=== PATIENT | female | born 1975 | race American Indian/Alaskan Native ===

== ENCOUNTER 2016-10-07 08:29 | Emergency (ER) | payer MEDICAID, OTHER ==
[2016-10-07] MEDS ORDERED: MOTRIN PO ONE (11:00)
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
[2016-10-07 13:13] VITALS: BP 135/82
== END 2016-10-07 13:12 | disposition home or self-care (01) ==
LOC: ED 08:29
DX: S16.1XXA Strain of muscle, fascia and tendon at neck level, initial encounter (principal); M25.512 Pain in left shoulder; V49.49XA Driver injured in collision with other motor vehicles in traffic accident, initial encounter; Y93.89 Activity, other specified; Y92.89 Other specified places as the place of occurrence of the external cause; Y99.8 Other external cause status
CPT/HCPCS: 99282

== ENCOUNTER 2018-07-05 21:35 | Emergency (ER) | payer OTHER ==
[2018-07-06 00:12] LABS: Basophils # (Auto) 0.1 K/mm3 (0.0-0.1); Basophils % (Auto) 0.8 % (0.0-1.8); Eosinophils # (Auto) 0.1 K/mm3 (0.0-0.4); Eosinophils % (Auto) 0.9 % (0.0-4.3); Hematocrit 27.8 % (30.3-42.9); Hemoglobin 8.6 gm/dl (10.1-14.3); Lymphocytes # (Auto) 2.1 K/mm3 (1.2-5.4); Lymphocytes % (Auto) 23.2 % (13.4-35.0); Mean Corpuscular HGB Conc 31 % (30-34); Monocytes # (Auto) 0.9 K/mm3 (0.0-0.8); Monocytes % (Auto) 9.3 % (0.0-7.3); Platelet Count 298 K/mm3 (140-440); Red Blood Count 4.51 M/mm3 (3.65-5.03)
[2018-07-06 00:23] LABS: Mean Corpuscular Volume 62 fl (79-97); Red Cell Distribution Width 20.5 % (13.2-15.2)
[2018-07-06] MEDS ORDERED: PERCOCET 5/325 PO ONE (02:34)
[2018-07-06] MEDS ORDERED: ZOFRAN IV ONE (02:34)
[2018-07-06] MEDS ORDERED: NACL 0.9% 1000 ML 1,000 ML IV ONE (02:34)
[2018-07-06 03:24] LABS: Alanine Aminotransferase 9 units/L (7-56); Albumin 3.8 g/dL (3.9-5); BUN/Creatinine Ratio 11; Blood Urea Nitrogen 9 mg/dL (7-17); Calcium 8.9 mg/dL (8.4-10.2); Hemolysis Index 0
[2018-07-06 06:06] LABS: Bacteria,Urine 1+ /HPF (Negative); Bilirubin,Urine NEG (Negative); Blood,Urine LG (Negative); Color,Urine Yellow (Yellow); Hyaline Casts,Urine 1 /LPF; Mucus,Urine 2+ /HPF; Protein,Urine <15 mg/dL mg/dL (Negative); Urobilinogen,Urine < 2.0 mg/dL (<2.0)
--- NOTE | 2018-07-06 06:24 | Emergency Department Report ---
ED Female HPI - General Chief complaint: Abdominal Pain Stated complaint: SHARP ABDOMINAL PAIN/DIZZY Time Seen by Provider: 07/06/18 03:00 Source: patient Mode of arrival: Ambulatory Limitations: No Limitations - History of Present Illness Initial comments: Patient is a 42-year-old, thin female history of chronic dysmenorrhea and menorrhagia due to chronic uterine and fibroids presents to the ED with a complaint of acute onset persistent severe dysmenorrhea and menorrhagia for the last 2 days. Patient also complains of nausea and vomiting and lightheadedness. Patient denies fever, chills, diarrhea, dysuria, urinary frequency and urgency, vaginal discharge, low back pain, dizziness, chest pain or shortness of breath. Patient states that this is typical of her chronic dysmenorrhea. MD Complaint: vaginal bleeding, pelvic pain, other (nausea and vomiting) -: Sudden, days(s) (2) Location: suprapubic, other (vaginal) Radiation: non-radiating, suprapubic Severity: severe Severity scale (0 -10): 7 Quality: cramping, sharp Consistency: intermittent Improves with: none Worsens with: menstrual period, movement Are you Now?: No Associated Symptoms: vaginal bleeding, abdominal pain, nausea/vomiting, weakness. denies: vaginal discharge, fever/chills, headaches, loss of appetite, dysuria, hematuria, rash, shortness of breath, syncope - Related Data Sexually active: Yes : 4 Para: 4 A: 0 Previous Rx's Medication Instructions Recorded Last Taken Type DOXYCYCLINE Hyclate [Vibramycin 100 mg PO BID #20 capsule 06/23/13 Unknown Rx CAP] metroNIDAZOLE [Flagyl] 500 mg PO BID #20 tablet 06/23/13 Unknown Rx Cyclobenzaprine [Flexeril] 10 mg PO TID PRN #15 tablet 10/07/16 Unknown Rx Ibuprofen [Motrin 600 MG tab] 600 mg PO Q8H PRN #15 tablet 10/07/16 Unknown Rx Ibuprofen [Motrin] 600 mg PO Q8H PRN #20 tablet 10/07/16 Unknown Rx Ibuprofen [Motrin] 800 mg PO Q8HR PRN #20 tablet 07/06/18 Unknown Rx Ondansetron [Zofran Odt] 4 mg PO Q6HR #20 tab.rapdis 07/06/18 Unknown Rx Sulfamethoxazole/Trimethoprim 1 each PO Q12H #20 tablet 07/06/18 Unknown Rx [Bactrim DS TAB] traMADol [Ultram] 50 mg PO Q6HR PRN #15 tablet 07/06/18 Unknown Rx Allergies Allergy/AdvReac Type Severity Reaction Status Date / Time No Known Allergies Allergy Verified 06/22/13 20:08 ED Review of Systems ROS: Stated complaint: SHARP ABDOMINAL PAIN/DIZZY Other details as noted in HPI Comment: All other systems reviewed and negative Constitutional: no symptoms reported, see HPI. denies: diaphoresis, fever, malaise Eyes: as per HPI. denies: eye pain, eye discharge, vision change ENT: as per HPI. denies: ear pain, throat pain, dental pain, hearing loss, epistaxis Respiratory: no symptoms reported, shortness of breath. denies: see HPI, cough, orthopnea, SOB at rest Cardiovascular: as per HPI. denies: chest pain, palpitations, dyspnea on exertion, edema, syncope Endocrine: no symptoms reported, see HPI. denies: excessive sweating, intolerance to cold, intolerance to heat, increased hunger, increased thirst, unexplained weight gain, unexplained weight loss Gastrointestinal: as per HPI, abdominal pain, nausea, vomiting. denies: diarrhea, constipation, hematemesis Genitourinary: as per HPI, abnormal menses (heavy), other (vaginal bleeding). denies: urgency, dysuria, discharge, dyspareunia Musculoskeletal: as per HPI. denies: back pain, joint swelling, arthralgia, myalgia Skin: as per HPI. denies: rash, lesions, change in color, change in hair/nails Neurological: as per HPI, weakness. denies: headache, numbness, paresthesias, confusion, abnormal gait, vertigo, other Psychiatric: as per HPI Hematological/Lymphatic: as per HPI ED Past Medical Hx - Past Medical History Additional medical history: vaginal delivery x 2 - Social History Smoking Status: Current Every Day Smoker Substance Use Type: None - Medications Home Medications: Home Medications Medication Instructions Recorded Confirmed Last Taken Type DOXYCYCLINE Hyclate [Vibramycin 100 mg PO BID #20 capsule 06/23/13 Unknown Rx CAP] metroNIDAZOLE [Flagyl] 500 mg PO BID #20 tablet 06/23/13 Unknown Rx Cyclobenzaprine [Flexeril] 10 mg PO TID PRN #15 tablet 10/07/16 Unknown Rx Ibuprofen [Motrin 600 MG tab] 600 mg PO Q8H PRN #15 tablet 10/07/16 Unknown Rx Ibuprofen [Motrin] 600 mg PO Q8H PRN #20 tablet 10/07/16 Unknown Rx Ibuprofen [Motrin] 800 mg PO Q8HR PRN #20 tablet 07/06/18 Unknown Rx Ondansetron [Zofran Odt] 4 mg PO Q6HR #20 tab.rapdis 07/06/18 Unknown Rx Sulfamethoxazole/Trimethoprim 1 each PO Q12H #20 tablet 07/06/18 Unknown Rx [Bactrim DS TAB] traMADol [Ultram] 50 mg PO Q6HR PRN #15 tablet 07/06/18 Unknown Rx ED Physical Exam - General Limitations: No Limitations General appearance: alert, in no apparent distress - Head Head exam: Present: atraumatic, normocephalic, normal inspection - Eye Eye exam: Present: normal appearance, PERRL, EOMI. Absent: scleral icterus, nystagmus Pupils: Present: normal accommodation - ENT ENT exam: Present: normal exam, normal orophraynx, TM's normal bilaterally, norm al external ear exam - Neck Neck exam: Present: normal inspection, full ROM. Absent: tenderness, lymphadenopathy - Respiratory Respiratory exam: Present: normal lung sounds bilaterally. Absent: respiratory distress, wheezes, rales, rhonchi, chest wall tenderness, decreased breath sounds - Cardiovascular Cardiovascular Exam: Present: regular rate, normal rhythm, normal heart sounds - GI/Abdominal GI/Abdominal exam: Present: soft, normal bowel sounds. Absent: distended, tenderness, guarding, rigid, hyperactive bowel sounds, hypoactive bowel sounds, organomegaly - Rectal Rectal exam: Present: deferred - Extremities Exam Extremities exam: Present: normal inspection, full ROM, normal capillary refill - Back Exam Back exam: Present: normal inspection, full ROM. Absent: tenderness, CVA tenderness (R), CVA tenderness (L), muscle spasm - Neurological Exam Neurological exam: Present: alert, oriented X3, CN II-XII intact, normal gait, reflexes normal - Psychiatric Psychiatric exam: Present: normal affect - Skin Skin exam: Present: warm, dry, intact ED Course Vital Signs 07/05/18 07/05/18 07/06/18 22:02 22:55 03:20 Temperature 98.7 F 98.7 F Pulse Rate 95 H 94 H Respiratory 18 18 18 Rate Blood Pressure 152/97 152/97 O2 Sat by Pulse 100 100 Oximetry - Reevaluation(s) Reevaluation #1: 07/06/18 06:29 Patient is alert and oriented 3 and is not in distress. Labs were drawn and urinalysis also ordered. Patient was treated for nausea and vomiting and pain, and lab test results were reviewed and are unremarkable except for urinalysis that showed acute urinary tract infection. Patient also received 1 L normal saline IV bolus. On reevaluation, patient symptoms have resolved except for menstrual cycle which is currently on. Patient advised to follow-up with LABORATORY IMMUNOLOGIST physician in 5-7 days for reevaluation. Patient discharged home on antibiotics for UTI and pain medications as well as antiemetics. Patient advised to return to the ED immediately if symptoms get worse. ED Medical Decision Making - Lab Data Result diagrams: 07/05/18 23:06 07/06/18 02:52 - Medical Decision Making Patient is alert and oriented 3 and is not in distress. Labs were drawn and urinalysis also ordered. Patient was treated for nausea and vomiting and pain, and lab test results were reviewed and are unremarkable except for urinalysis that showed acute urinary tract infection. Patient also received 1 L normal saline IV bolus. On reevaluation, patient symptoms have resolved except for menstrual cycle which is currently on. Patient advised to follow-up with LABORATORY IMMUNOLOGIST physician in 5-7 days for reevaluation. Patient discharged home on antibiotics for UTI and pain medications as well as antiemetics. Patient advised to return to the ED immediately if symptoms get worse. - Differential Diagnosis Dysmenorrhea, Menorrhagia, UTI Critical care attestation.: If time is entered above; I have spent that time in minutes in the direct care of this critically ill patient, excluding procedure time. ED Disposition Clinical Impression: Dysmenorrhea, Acute urinary tract infection, Acute suprapubic pain, Nausea and vomiting in adult Disposition: DC-01 TO HOME OR SELFCARE Is pt being admited?: No Does the pt Need Aspirin: No Condition: Stable Instructions: Abdominal Pain (ED), Dysmenorrhea (ED), Urinary Tract Infection in Women (ED), Acute Nausea and Vomiting (ED) Additional Instructions: Take medications with food, drink plenty of fluids and follow up with your primary care physician in 7-10 days for reevaluation. Consider following up with the LABORATORY IMMUNOLOGIST physician as well. Return to the ED immediately if symptoms get worse. Prescriptions: Sulfamethoxazole/Trimethoprim [Bactrim DS TAB] 1 each PO Q12H #20 tablet Ibuprofen [Motrin] 800 mg PO Q8HR PRN #20 tablet PRN Reason: Pain , Severe (7-10) traMADol [Ultram] 50 mg PO Q6HR PRN #15 tablet PRN Reason: Pain Ondansetron [Zofran Odt] 4 mg PO Q6HR #20 tab.rapdis Referrals: FRANCE GOMEZ MD [Primary Care Provider] - 3-5 Days Forms: Work/School Release Form(ED) Time of Disposition: 06:23 Print Language: [id number]
[2018-07-06 07:03] VITALS: BP 140/92
== END 2018-07-06 06:38 | disposition home or self-care (01) ==
LOC: ED 21:35
DX: N39.0 Urinary tract infection, site not specified (principal); N94.6 Dysmenorrhea, unspecified; F17.200 Nicotine dependence, unspecified, uncomplicated
CPT/HCPCS: 36415; 80053; 81001; 83690; 84703; 85025; 96361; 96374; 99283; J2405; J7030